=== PATIENT | male | born 1995 | race African-American/Black ===

== ENCOUNTER 2021-05-07 06:57 | Emergency (ER) | payer MEDICAID, OTHER ==
[~2021-05-07] VITALS: Ht 177.8 cm; Wt 90.0 kg
[2021-05-07] MEDS ORDERED: BACL-141 MT (07:55)
[2021-05-07] MEDS ORDERED: LIDO700A15 TP (07:55)
[2021-05-07] MEDS ORDERED: ACET-2708 MT (07:55)
[2021-05-07] MEDS ORDERED: IBUP-2029 MT (07:55)
[2021-05-07] MEDS ORDERED: IBUPROFEN 600MG TABLET PO ONE (08:00)
[2021-05-07] MEDS ORDERED: LIDOCAINE 5% PATCH TOP SCH (08:00)
[2021-05-07 08:24] VITALS: BP 143/82
== END 2021-05-07 08:49 | disposition home or self-care (01) ==
LOC: ER 07:12
DX: S13.4XXA Sprain of ligaments of cervical spine, initial encounter (principal); R03.0 Elevated blood-pressure reading, without diagnosis of hypertension; V43.62XA Car passenger injured in collision with other type car in traffic accident, initial encounter; Y93.89 Activity, other specified; Y92.410 Unspecified street and highway as the place of occurrence of the external cause
CPT/HCPCS: 99283